=== PATIENT | female | born 1935 | race Two or more races ===

== ENCOUNTER 2023-11-28 15:33 | Emergency (ER) | payer OTHER ==
[~2023-11-28] VITALS: Ht 147.3 cm; Wt 59.0 kg
[2023-11-28] MEDS ORDERED: SYNTHROID50 MCG (16:21)
[2023-11-28] MEDS ORDERED: COZAAR50 MG (16:21)
[2023-11-28] MEDS ORDERED: ATENOLOL25 MG (16:22)
[2023-11-28] MEDS ORDERED: ATORVASTATIN CA20 MG (16:22)
[2023-11-28] MEDS ORDERED: ENOXAPARIN SODIUM 40 MG/0.4 ML SYRINGE SUBCUTANEO ONE ×2 (16:45→16:49)
[2023-11-28] MEDS ORDERED: KETOROLAC TROMETHAMINE 30 MG VIAL IM ONE (16:45)
[2023-11-28] MEDS ORDERED: KETOROLAC TROMETHAMINE 30 MG VIAL ONE (16:49)
[2023-11-28 17:23] LABS: HEMATOCRIT 33.2 % (36.0-45.00); HEMOGLOBIN 11.3 g/dL (12.0-15.00); MEAN CELL VOLUME 93.4 fL (80.00-100.00); MEAN CORPUSCULAR HEMOGLOBIN 31.8 pg (27.00-32.0); PLATELET COUNT 166 K/uL (150-450); RED BLOOD COUNT 3.55 M/uL (4.00-6.00); RED CELL DISTRIBUTION WIDTH 13.8 % (11.5-14.5)
[2023-11-28 17:37] LABS: PARTIAL THROMBOPLASTIN TIME 27.5 SECONDS (22.0-34.0)
[2023-11-28 17:40] LABS: D DIMER 0.34 MG/L; INR 1.04; PROTHROMBIN TIME 10.9 SECONDS (9.0-11.5)
== END 2023-11-28 17:59 | disposition home or self-care (01) ==
LOC: ER 15:34
PROVIDERS: General Practice
DX: M79.605 Pain in left leg (principal); I10 Essential (primary) hypertension; E03.8 Other specified hypothyroidism; Z91.018 Allergy to other foods
CPT/HCPCS: 36415; 96372; 99282; J1885